=== PATIENT | female | born 1960 | race Caucasian/White ===

== ENCOUNTER 2024-08-01 09:07 | Emergency (ER) | payer OTHER, SELFPAY ==
--- NOTE | ~2024-08-01 | CT_ITS ---
EXAMINATION: CT CERVICAL SPINE WITHOUT CONTRAST CLINICAL INFORMATION: Status post fall. COMPARISON: None available. TECHNIQUE: Contiguous axial images through the cervical spine using 3 mm collimation with bone and soft tissue algorithm. Sagittal and coronal reformatted images acquired. This CT examination was performed using dose optimization techniques as appropriate, variously including the following: *Automated exposure control *Adjustment of mA and/or kV according to patient size (this includes techniques or standardized protocols for targeted exams where dose is matched to indication/reason for exam; i.e. extremities or head) *Use of iterative reconstruction technique DLP: 625.17 mGy centimeter. FINDINGS: Craniocervical junction is intact without malalignment. There is bone fusion and extending from the left transverse processes of C1 into the inferior aspect of the left petrous bone. C1 is intact. C2 is intact. C3 is intact. C4 is intact. C5 is intact. C6 is intact. C7 is intact. No prevertebral compartment hematoma. There is a reverse curvature apex at C4-5. There is no gross malalignment between the vertebral bodies or the facet joints. CT/CT cervical spine wo IV con IMPRESSION: Multilevel cervical spondylosis without acute fracture or trauma-related listhesis. Left-sided unilateral bone fusion, left C1 inferior petrous bone. Fleischner guidelines were followed. Electronically signed by: Everton Mejia MD 08/01/2024 01:04 PM EDT
--- NOTE | ~2024-08-01 | CT_ITS ---
EXAMINATION: CT CHEST WITH CONTRAST CLINICAL INFORMATION: Status post fall. Left-sided chest pain. COMPARISON: None available. TECHNIQUE: Multidetector volumetric CT imaging of the chest was obtained after the administration of 85 mL of Omnipaque 350 intravenous contrast without immediate adverse reactions. Axial MIP volume rendering provided. Sagittal and coronal reformatted images were obtained. This CT examination was performed using dose optimization techniques as appropriate, variously including the following: *Automated exposure control *Adjustment of mA and/or kV according to patient size (this includes techniques or standardized protocols for targeted exams where dose is matched to indication/reason for exam; i.e. extremities or head) *Use of iterative reconstruction technique FINDINGS: BITE BLOCK MAKER: Patient's large body habitus. Single broad-based anchor and the upper thoracic and mid lumbar spine. Right upper extremity away from the patient's body. Left upper extremities to the side of the patient's body. LUNGS: Linear attenuation abnormalities in the lung bases right middle lung lobe and lingula. Paraseptal emphysematous changes in the upper lobes. No gross consolidation. No gross bronchiectasis. No gross honeycombing. MEDIASTINUM: No hemomediastinum. No pneumomediastinum. No hemopericardium. No IV contrast extravasation the thoracic aorta. No aneurysm or dissection. No pericardial effusion. Nonspecific mildly prominent lymph nodes. Calcified plaques in the coronary arteries. PLEURA: . No pneumothorax. No hemothorax. Small volume left-sided pleural effusion. AXILLA: No lymphadenopathy. UPPER ABDOMEN: Please refer to CT OSSEOUS STRUCTURES: No acute rib fracture, left hemithorax. Multilevel spondylosis without acute fracture or trauma-related listhesis. Status post posterior fusion and anchored to the posterior elements and T4 and the lumbar spine aren't [id number]. The sternum is intact. The scapula is intact. The included clavicles are intact. CT/CT chest w IV con IMPRESSION: No acute intrathoracic organ or vascular injury. No acute fracture. Fleischner guidelines were followed. Electronically signed by: Everton Mejia MD 08/01/2024 12:57 PM EDT
--- NOTE | ~2024-08-01 | CT_ITS ---
EXAMINATION: CT HEAD WITHOUT CONTRAST CLINICAL INFORMATION: fall COMPARISON: None available. TECHNIQUE: Contiguous axial imaging was performed from the skull base to vertex without intravenous administration of contrast. This CT examination was performed using dose optimization techniques as appropriate, variously including the following: *Automated exposure control *Adjustment of mA and/or kV according to patient size (this includes techniques or standardized protocols for targeted exams where dose is matched to indication/reason for exam; i.e. extremities or head) *Use of iterative reconstruction technique DLP: 647.62 mGy-cm FINDINGS: Limited due to patient's positioning on the CT scanner. No acute cortical disruption in the bony calvarium or the skull base. No acute intracranial hemorrhage, mass effect, midline shift, hydrocephalus or herniation. Bilateral multifocal patchy and confluent deep periventricular white matter hypodensities involving centrum semiovale and wilburn radiata and cerebral hemispheres. Miner-white matter differentiation is normal. Prominence of the extra-axial CSF spaces cerebral sulci and ventricles. Mucosal thickening and secretions with the mixed increased density and volume loss, right maxillary sinus. Edentulous. CT/CT head/brain wo IV con IMPRESSION: No acute fracture or bony calvarium. No acute intracranial hemorrhage. White matter disease likely related to small vessel occlusive disease. Acute on chronic right maxillary sinus disease. Electronically signed by: Everton Mejia MD 08/01/2024 12:40 PM EDT
--- NOTE | ~2024-08-01 | CT_ITS ---
EXAMINATION: CT ABDOMEN AND PELVIS WITH CONTRAST CLINICAL INFORMATION: Status post fall. Left upper abdominal pain. COMPARISON: None available. TECHNIQUE: Multidetector volumetric images were obtained from the superior aspect of the liver through the pubic symphysis following administration 85 mL of Omnipaque 350 intravenous contrast. Sagittal and coronal reformatted images were obtained on the technologist's workstation. Oral contrast: No This CT examination was performed using dose optimization techniques as appropriate, variously including the following: *Automated exposure control *Adjustment of mA and/or kV according to patient size (this includes techniques or standardized protocols for targeted exams where dose is matched to indication/reason for exam; i.e. extremities or head) *Use of iterative reconstruction technique DLP: 881.03 mGy centimeter. FINDINGS: LUNG BASES: Linear and patchy attenuation center the lung bases, lingula and right middle lung lobe. LIVER, GALLBLADDER, AND BILIARY TREE: Liver is intact. Liver measures 18 cm decreased enhancement pattern in subtle nodular surface. Portal veins and hepatic veins are patent without IV contrast extravasation. No intrahepatic biliary ductal dilatation. Focal cholelithiasis. No pericholecystic fluid collection or gallbladder wall thickening. No extrahepatic biliary ductal dilatation. PANCREAS: Intact. No focal lesion. No peripancreatic fluid collection. No main pancreatic ductal dilatation. SPLEEN: 8 cm. Intact. No focal lesion. ADRENAL GLANDS: Intact. No nodular lesions. KIDNEYS AND URETERS: Intact. No gross enhancing mass. No hydronephrosis. No gross nephrolithiasis. BLADDER: There are few. GASTROINTESTINAL TRACT: Abundant stool. No intestinal obstruction. No intestinal wall thickening. Scattered diverticula in the left hemicolon. Appendix is normal. No intestinal obstruction. No pneumoperitoneum. No ascites. No peripheral enhancing fluid collection, peritoneal cavity. ABDOMINAL WALL: Diastases abdominal rectus muscles in the periumbilical region. Small tiny fat-containing umbilical hernia. LYMPH NODES: No lymphadenopathy. VASCULAR: Calcified plaques throughout the abdominal aorta wall and iliac arteries without aneurysm or dissection. PELVIC VISCERA: 3.4 cm cystic lesion, left adnexa. OSSEOUS STRUCTURES: The hardening artifact secondary to a metallic round on the left side of the posterior elements extending from the thoracic spine no fully included and anchor and posterior elements of L3. No acute fracture. Incomplete ankylosis of the vertebral bodies and the lower thoracic spine. Grade 1 retrolisthesis L3-4 on a degenerative basis. Multilevel marginal osteophyte formation and vacuum phenomenon from L3-4 to L5-S1. S-shaped curvature of the thoracolumbar junction. No acute fracture or dislocation in the coxofemoral joints. There is a bone defect in the right iliac bone likely related to the spine surgery. There is fatty atrophy of the lower lumbar muscles from L3 to sacrum. CT/CT abdomen pelvis w IV con IMPRESSION: No acute intra-abdominal pelvic organ injury or vascular injury or acute fracture. Consider hepatocellular disease/cirrhosis. Cholelithiasis. Diverticular disease. 3.4 cm cystic lesion left adnexa. Fleischner guidelines were followed. Electronically signed by: Everton Mejia MD 08/01/2024 12:48 PM EDT
--- NOTE | ~2024-08-01 | XR_ITS ---
EXAMINATION: XR RIBS, LEFT CLINICAL INFORMATION: fall rib pain COMPARISON: None available. TECHNIQUE: 3 views of the left ribs were obtained. FINDINGS: Linear opacities in the lower hemithoraces. Pulmonary reticular pattern. No gross consolidation. No pneumothorax. Blunting of the left costophrenic angle. No acute cortical disruption in the ribs of the left hemithorax. S-shaped curvature of the thoracolumbar spine. There is a single metallic tawny anchored in the proximal thoracic spine and proximal lumbar spine likely related to the scoliosis. Cardiomediastinal silhouette size is normal. Secretions in the thoracic aortic arch. XR/XR ribs LT min 3V w CXR1V IMPRESSION: Chronic interstitial lung disease and mild interstitial lung edema versus subsegmental atelectasis. Questionable small volume left-sided pleural effusion versus pleural thickening. No overt acute rib fracture, left hemithorax. Electronically signed by: Everton Mejia MD 08/01/2024 10:25 AM EDT
[2024-08-01 09:12] VITALS: BP 149/83; PULSE 79; RESP 18; O2SAT 98; BMI 34.4
--- NOTE | 2024-08-01 09:46 | ED_ITS ---
HPI - Fall General Chief Complaint: Fall Stated Complaint: Fall 4 days ago - body pains, SOB Time Seen by Provider: 08/01/24 09:17 Source: patient and RN notes reviewed Mode of arrival: ambulatory Limitations: no limitations History of Present Illness ED Provider: Gladys Bryson PA-C HPI Narrative: This is a 63-year-old female, with a history of atrial fibrillation on Eliquis, hyperlipidemia, hypertension, and emphysema, who presents emergency department with concerns for fall which occurred 4 days ago. Patient states that on Wednesday she was waiting for the bus, and quickly turned her head to the right and then fell onto her left side of her body with her left arm extended upwards. She is unsure if she lost consciousness, she was feeling well prior to the fall. She states that she believes she was trying to get her walker and lost her balance and fell. She landed onto her left side. She denies LOC however states that if she did not lose consciousness this was only for a brief second as others were trying to help her up. She felt well prior to the fall. She states that since fall she has had left-sided rib pain which worsens with coughing and with deep inspiration. She denies any dizziness, severe headache, blurred vision, vision changes, chest pain, shortness of breath, palpitations, abdominal pain, nausea, vomiting or diarrhea. She has been taking Tylenol for her symptoms which has provided her with some relief. No other complaints or concerns at this time. MD complaint: fall Onset (ago): day(s) Fall from: standing Fall witnessed: yes, by bystander Place fall occurred: street Loss of consciousness: unsure Length of LOC: second(s) Prolonged down time: no Symptoms prior to fall: none Context: tripped/slipped Severity: moderate Quality: sharp and aching Related Data Previous Rx's ?Medication ?Instructions ?Recorded acetaminophen 500 mg tablet 500 mg PO Q6H PRN pain #30 tabs 08/01/24 (Tylenol Extra Strength) lidocaine 5 % topical patch 1 patch topical DAILY #30 ea 08/01/24 Allergies Allergy/AdvReac Type Severity Reaction Status Date / Time No Known Allergies Allergy Verified 08/01/24 09:14 Review of Systems 2 Review of Systems: Constitutional: No Weight loss, No Fever, No Chills, No Night Sweats, No Fatigue, No Malaise ENT/Mouth: No Hearing loss, No Ear Pain, No Nasal Congestion, No Sinus Pain, No Hoarseness, No sore throat, No Rhinorrhea, No Swallowing Difficulty Eyes: No Eye Pain, No Swelling, No Redness, No Foreign Body, No Discharge, No Vision Changes Cardiovascular: No Chest Pain, No SOB, No Dyspnea on Exertion, No Orthopnea, No Edema, No Palpitations Respiratory: No Cough, No Sputum, No Wheezing, No Smoke Exposure, No Dyspnea Gastrointestinal: No Nausea, No Vomiting, No Diarrhea, No Constipation, No Abdominal pain, No Hematochezia, No Melena Genitourinary: No irregular bleeding, No Dysuria, No Urinary Frequency, No Hematuria, No Urinary Incontinence/retention, No Urgency, No Flank Pain, No Urinary Flow Changes, No Hesitancy Musculoskeletal: No joint pain, No Myalgias, No Joint Swelling Skin: No Skin Lesions, No rash Neuro: No Weakness, No Numbness, No Paresthesias, No Loss of Consciousness, No Dizziness, No Headache Psych: No Anxiety/Panic, No Depression, No SI/HI/AH/VH, No Social Issues, Heme/Lymph: No Bruising, No Bleeding,No Lymphadenopathy Endocrine: No Polyuria, No Polydipsia, No Temperature Intolerance Yes all other systems are reviewed and are negative Constitutional: Constitutional: Reports as per [facility] Social History Social History Advance Directives: No Advance Directives Information Provided: Yes Do you have a plan to hurt others: No Plan Patient : No Physical Exam 2 Vital Signs: Vital Signs: Last Vital Signs Temp 98.1 F 08/01/24 15:51 Pulse 78 08/01/24 15:51 Resp 18 08/01/24 15:51 BP 120/66 08/01/24 15:51 Pulse Ox 95 08/01/24 15:51 O2 Del Method Room Air 08/01/24 15:51 BMI result Body Mass Index 34.4 Const: General: cooperative, comfortable and no acute distress O rientation/consciousness: patient oriented x3 Limitations: no limitations HEENT: Head: Yes normal to inspection, Yes normocephalic, Yes atraumatic, No Victor's sign, No occipital foramen tenderness and No raccoon eyes Ears: h earing grossly normal bilaterally and TM's normal bilaterally (No hemotympanum) General nose exam: Normal external nose present Face and sinus: Yes normal facial exam Mouth: Normal oral and palatal mucosa present, oropharynx normal and moist mucous membranes Throat: Yes posterior oropharynx normal Eyes: General: appearance normal, both eyes and all related structures E yelids: Yes eyelids normal Conjunctivae: conjunctivae normal Sclerae: s clerae normal Pupils: Equal, round and reactive pupils present EOM: EOMs intact bilaterally Neck: Neck: Yes normal visual inspection, Yes full ROM and Yes no lymphadenopathy Lymphatic: no lymphadenopathy noted Chest: Other: Left lateral breast with 2 1 mm round area of old ecchymosis with tenderness palpation. She does have tenderness palpation along the left lateral ribs, with no bony step-off or deformity. No flail chest. Chest palpation & inspection: normal inspection of the chest Resp: Effort & Inspection: normal respiratory effort and able to speak in complete sentences Auscultation: clear to auscultation bilaterally, no crackles, no rales, no rhonchi and no wheezes Cardio: Rate: regular rate Rhythm: regular rhythm Heart sounds: S1 normal heart sound present and S2 normal heart sound present GI: Inspection: Yes normal to inspection Back/Spine/Pelvis: Other: Mild tenderness palpation along the lumbar paraspinous muscles, there is a large well-healed surgical incision site noted to the lumbar spine. No surrounding erythema or warmth. Skin: General skin exam: no rashes or lesions noted Trauma: no lacerations or abrasions Wounds: no wounds Neuro: General: patient oriented x3 and moves all extremities Cranial nerves: Yes Equal, round and reactive pupils present Extrem: General: Yes normal to inspection Right upper extremity: normal to inspection Left upper extremity: normal to inspection Right lower extremity: normal to inspection Left lower extremity: normal to inspection Course Reevaluation(s) Reevaluation #1: Labs returned, she has no leukocytosis, stable H&H, chemistry revealing slight hyponatremia at 132, AST and ALT slightly elevated at 71 and 73, T bili within normal limits. Troponin x2 less than 2.7. Urine does not appear to be infected. EKG revealing a normal sinus rhythm at a ventricular rate of 78 beats per minute. CO interval 208, QT QTC 442/503. No STEMI. Right bundle-branch block noted. No previous for comparison. CT head, neck, abdomen and pelvis, and chest revealed no acute findings. There are multiple incidental findings including hepatocellular disease, cystic lesion on the left adnexa, cholelithiasis, diverticular disease, as well as degenerative changes of the lumbar spine. CT chest revealing no intrathoracic organs or vascular injury. CT of the C-spine revealing left-sided unilateral phone fusion left C1 bone.. Discussed all of these findings with patient. Advised that she needs to follow- up with her primary care physician for monitoring. She was feeling well, eager for discharge. Will discharged on Tylenol as she was currently on Eliquis and therefore can not take NSAIDs. Given strict return precautions. She understands agrees with plan. Patient stable for discharge. Medications Administered Discontinued Medications Generic Name Dose Route Start Last Admin Trade Name Freq PRN Reason Stop Dose Admin Acetaminophen 1,000 mg in 100 mls @ 400 mls/hr 08/01/24 10:03 08/01/24 10:41 Ofirmev IV 08/01/24 10:17 Infused ONCE ONE Infusion Iohexol 100 ml 08/01/24 12:07 08/01/24 12:08 Iohexol 350 Mg/Ml 100 Ml Infus..Btl IV 08/01/24 12:08 85 ml ONCE ONE Administration Medical Decision Making Medical Decision Making [facility] Narrative: This is a 63-year-old female, with a history of atrial fibrillation on Eliquis, emphysema, hypertension, hyperlipidemia, who presents emergency department with complaints of left-sided rib pain status post fall which occurred several days ago. On arrival, blood pressure mildly elevated at 140 9/83, all other vital signs within normal limits. She is neurologically intact with no neurologic focal deficits on examination. She has mild tenderness palpation along the left lateral ribs, as well as left upper quadrant. Given that she was on anticoagulation, will obtain a CT head, neck, chest and abdomen. Differential diagnoses include rib fracture, pneumothorax, ICH, SDH, arrhythmia, electrolyte abnormality. Plan: Labs, CT, EKG Differential Diagnosis Differential Diagnoses: The differential diagnosis associated with the presentation includes See above Admission/Observation Consideration of admission/observation: Escalation of care including admission/observation considered Lab Data [facility] Lab Attestation statement: I reviewed the patient's lab results. See course comment 08/01/24 10:21 08/01/24 11:23 Labs: Lab Results 08/01/24 08/01/24 08/01/24 Range/Units 10:21 11:23 14:19 WBC 9.4 (4.8-10.8) X10*3/uL RBC 4.65 (4.20-5.50) X10*6/uL Hgb 14.0 (12.0-16.0) g/dl Hct 41.9 (37.0-47.0) % MCV 90.1 (80.0-98.0) fL MCH 30.1 (27.0-33.0) pg MCHC 33.4 (31.0-35.0) g/dl RDW 13.7 (11.0-16.0) % Plt Count 268 (160-400) X10*3/uL MPV 9.0 L (9.4-12.3) fL Immature Gran % (Auto) 0.3 (0.0-0.4) % Neut % (Auto) 71.7 (45-73) % Lymph % (Auto) 14.3 L (20-40) % [place] % (Auto) 8.6 (2-11) % Eos % (Auto) 4.4 H (0-4) % Baso % (Auto) 0.7 (0-2) % Lymph # (Auto) 1.3 (1.2-4.9) X10*3/uL [place] # (Auto) 0.8 (0.1-1.2) X10*3/uL Eos # (Auto) 0.4 (0.0-0.4) X10*3/uL Baso # (Auto) 0.1 (0.0-0.2) X10*3/uL Abs Immat Gran (auto) 0.03 (0.00-0.03) X10*3/uL Absolute Neuts (auto) 6.7 (2.0-8.3) x10*3/uL Absolute Nucleated RBC 0.000 (0.0-0.012) X10*3/uL Nucleated RBC % (auto) 0.0 (0.0-0.2) /100WBC PT 16.3 H (10.9-12.4) SEC INR 1.4 H (0.9-1.1) Sodium 132 L (135-145) mmol/L Potassium 4.7 (3.3-5.1) mmol/L Chloride 99 (96-108) mmol/L Carbon Dioxide 23 (22-29) mmol/L Anion Gap 15 (12-20) BUN 10 (9-16) mg/dL Creatinine 0.70 (0.5-1.4) mg/dL Estim Creat Clear Calc 101.0 Estimated GFR > 60 Random Glucose 108 (60-115) mg/dL Calcium 9.2 (8.4-10.2) mg/dL Magnesium 2.1 (1.6-2.6) mg/dL Total Bilirubin 0.6 (0.0-1.0) mg/dL Direct Bilirubin 0.2 (0.0-0.5) mg/dL AST 71 H (5-31) U/L ALT 73 H (0-31) U/L Alkaline Phosphatase 115 (39-117) U/L Troponin I High Sens < 2.7 < 2.7 (<3.5-17.0) ng/L Total Protein 7.3 (6.5-8.0) g/dL Albumin 4.4 (3.5-5.0) g/dL Lipase 20 (8-78) U/L Urine Color Yellow Urine Appearance Clear Urine pH 6.0 (5.0-9.0) Ur Specific [place] >= 1.030 H (1.005-1.025) Urine Protein Negative (Neg-Trace) mg/dL Urine Glucose (UA) Negative (Negative) mg/dL Urine Ketones Negative (Negative) mg/dL Urine Blood Negative (Negative) Urine Nitrite Negative (Negative) Ur Leukocyte Esterase Negative (Negative) Independent Interpretation I performed an independent interpretation of an: EKG Interpretation: EKG normal sinus rhythm with a right bundle-branch block, ventricular rate of 78 beats per minute, QT QTC 442/503, no STEMI. No previous for comparison. Radiology Impression Discussion of test interpretation with radiology: I have reviewed the radiologist's reading. Radiologist Impression: CT/CT cervical spine wo IV con IMPRESSION: Multilevel cervical spondylosis without acute fracture or trauma-related listhesis. Left-sided unilateral bone fusion, left C1 inferior petrous bone. Fleischner guidelines were followed. Electronically signed by: Everton Mejia MD 08/01/2024 01:04 PM EDT [address] [place] [address] XRay Report Signed Patient: Vidya Colmenares MR#: [id number] : 1960 Acct:[id number] Age/Sex: 63 / F ADM Date: 08/01/24 Loc: .ED Attending Dr: Ordering Physician: Gilbert Dietrich MD Date of Service: 08/01/24 Procedure(s): XR ribs LT min 3V w CXR1V Accession Number(s): [id number] cc: HOPE FROST MD; Gilbert Dietrich MD~ EXAMINATION: XR RIBS, LEFT CLINICAL INFORMATION: fall rib pain COMPARISON: None available. TECHNIQUE: 3 views of the left ribs were obtained. FINDINGS: Linear opacities in the lower hemithoraces. Pulmonary reticular pattern. No gross consolidation. No pneumothorax. Blunting of the left costophrenic angle. No acute cortical disruption in the ribs of the left hemithorax. S-shaped curvature of the thoracolumbar spine. There is a single metallic tawny anchored in the proximal thoracic spine and proximal lumbar spine likely related to the scoliosis. Cardiomediastinal silhouette size is normal. Secretions in the thoracic aortic arch. XR/XR ribs LT min 3V w CXR1V IMPRESSION: Chronic interstitial lung disease and mild interstitial lung edema versus subsegmental atelectasis. Questionable small volume left-sided pleural effusion versus pleural thickening. No overt acute rib fracture, left hemithorax. Electronically signed by: Everton Mejia MD 08/01/2024 10:25 AM EDT [address] [address] [address] Scan Report Signed Patient: Vidya Colmenares MR#: [id number] : 1960 Acct:[id number] Age/Sex: 63 / F ADM Date: 08/01/24 Loc: .ED Attending Dr: Ordering Physician: Gladys Reyes Date of Service: 08/01/24 Procedure(s): CT head/brain wo IV con Accession Number(s): [id number] cc: HOPE FROST MD; Gladys Reyes~ Report Number: [id number]: Total DLP = 1282.00 mGy-cm EXAMINATION: CT HEAD WITHOUT CONTRAST CLINICAL INFORMATION: fall COMPARISON: None available. TECHNIQUE: Contiguous axial imaging was performed from the skull base to vertex without intravenous administration of contrast. This CT examination was performed using dose optimization techniques as appropriate, variously including the following: *Automated exposure control *Adjustment of mA and/or kV according to patient size (this includes techniques or standardized protocols for targeted exams where dose is matched to indication/reason for exam; i.e. extremities or head) *Use of iterative reconstruction technique DLP: 647.62 mGy-cm FINDINGS: Limited due to patient's positioning on the CT scanner. No acute cortical disruption in the bony calvarium or the skull base. No acute intracranial hemorrhage, mass effect, midline shift, hydrocephalus or herniation. Bilateral multifocal patchy and confluent deep periventricular white matter hypodensities involving centrum semiovale and wilburn radiata and cerebral hemispheres. Miner-white matter differentiation is normal. Prominence of the extra-axial CSF spaces cerebral sulci and ventricles. Mucosal thickening and secretions with the mixed increased density and volume loss, right maxillary sinus. Edentulous. CT/CT head/brain wo IV con IMPRESSION: No acute fracture or bony calvarium. No acute intracranial hemorrhage. White matter disease likely related to small vessel occlusive disease. Acute on chronic right maxillary sinus disease. Electronically signed by: Everton Mejia MD 08/01/2024 12:40 PM EDT RP Dictated By: Everton Arriola MD FINDINGS: LUNG BASES: Linear and patchy attenuation center the lung bases, lingula and right middle lung lobe. LIVER, GALLBLADDER, AND BILIARY TREE: Liver is intact. Liver measures 18 cm decreased enhancement pattern in subtle nodular surface. Portal veins and hepatic veins are patent without IV contrast extravasation. No intrahepatic biliary ductal dilatation. Focal cholelithiasis. No pericholecystic fluid collection or gallbladder wall thickening. No extrahepatic biliary ductal dilatation. PANCREAS: Intact. No focal lesion. No peripancreatic fluid collection. No main pancreatic ductal dilatation. SPLEEN: 8 cm. Intact. No focal lesion. ADRENAL GLANDS: Intact. No nodular lesions. KIDNEYS AND URETERS: Intact. No gross enhancing mass. No hydronephrosis. No gross nephrolithiasis. BLADDER: There are few. GASTROINTESTINAL TRACT: Abundant stool. No intestinal obstruction. No intestinal wall thickening. Scattered diverticula in the left hemicolon. Appendix is normal. No intestinal obstruction. No pneumoperitoneum. No ascites. No peripheral enhancing fluid collection, peritoneal cavity. ABDOMINAL WALL: Diastases abdominal rectus muscles in the periumbilical region. Small tiny fat-containing umbilical hernia. LYMPH NODES: No lymphadenopathy. VASCULAR: Calcified plaques throughout the abdominal aorta wall and iliac arteries without aneurysm or dissection. PELVIC VISCERA: 3.4 cm cystic lesion, left adnexa. OSSEOUS STRUCTURES: The hardening artifact secondary to a metallic round on the left side of the posterior elements extending from the thoracic spine no fully included and anchor and posterior elements of L3. No acute fracture. Incomplete ankylosis of the vertebral bodies and the lower thoracic spine. Grade 1 retrolisthesis L3-4 on a degenerative basis. Multilevel marginal osteophyte formation and vacuum phenomenon from L3-4 to L5-S1. S-shaped curvature of the thoracolumbar junction. No acute fracture or dislocation in the coxofemoral joints. There is a bone defect in the right iliac bone likely related to the spine surgery. There is fatty atrophy of the lower lumbar muscles from L3 to sacrum. CT/CT abdomen pelvis w IV con IMPRESSION: No acute intra-abdominal pelvic organ injury or vascular injury or acute fracture. Consider hepatocellular disease/cirrhosis. Cholelithiasis. Diverticular disease. 3.4 cm cystic lesion left adnexa. Fleischner guidelines were followed. Electronically signed by: Everton Mejia MD 08/01/2024 12:48 PM EDT Dictated By: Everton Arriola MD Discharge Plan Discharge Clinical Impression: Fall, Contusion of rib on left side Patient Disposition: Home, Self-Care Instructions: Contusion in Adults (ED), Fall Prevention (ED), Rib Contusion (ED) Additional Instructions: You were seen in the emergency department after a fall. Your workup today was reassuring. Please rest, ice, and take Tylenol as needed for pain. You may also use Lidoderm patches as needed. Your urine does not appear to be infected. Please follow-up with your primary care physician regarding this visit. You do have slight elevation in your liver enzymes, and a low sodium, there is no emergent intervention needed however you need follow-up with your primary care physician Your head CT, neck CT do not show any new injury from the fall. You have multiple incidental findings from your CT scans that were performed today. You have a cystic lesion on your left adnexa, diverticular disease, cholelithiasis, and cirrhosis, also have a left-sided unilateral bone fusion at your C1 level in your neck. Call your primary care physician regarding this finding. Your EKG shows a right bundle-branch block, we have no previous EKGs for comparison, your troponin blood enzymes were drawn several times, and were normal. Please follow-up with your primary care. You have no evidence of the rib fracture on your images. However you are likely going to be right sore for the next several days. If any new or worsening symptoms occur including but not limited to severe shortness of breath, chest pain, please seek emergent care. Prescriptions: New acetaminophen [Tylenol Extra Strength] 500 mg tablet 500 mg PO Q6H PRN (Reason: pain) Qty: 30 0RF lidocaine 5 % adhesive patch,medicated 1 patch topical DAILY Qty: 30 0RF Rx Instructions: leave on most painful area for up to 12 hrs Interventions: ED Discharge Assessment Last Done: 08/01/24 15:51 Discharge Date/Time: 08/01/24 15:52 Print Language: Gambian
[2024-08-01 09:56] VITALS: BP 139/79; PULSE 83; RESP 18; O2SAT 99
--- NOTE | 2024-08-01 10:01 | ECG_ITS ---
Test Reason : fall Blood Pressure : */* mmHG Vent. Rate : 78 BPM Atrial Rate : 78 BPM P-R Int : 208 ms QRS Dur : 110 ms QT Int : 442 ms P-R-T Axes : 48 9 57 degrees QTcB Int : 503 ms Normal sinus rhythm Right bundle branch block Abnormal ECG No previous ECGs available Referred By: Gladys Bryson Electronically Signed By: Андрей Merrill
[2024-08-01] MEDS: Acetaminophen 1,000 MG/100 ML PIGGYBACK 400 MG IV (10:26)
[2024-08-01 10:28] LABS: MANUAL DIFF FLAG NO
[2024-08-01 10:31] LABS: Basophils Absolute Auto 0.1 X10*3/uL (0.0-0.2); Basophils Percent Auto 0.7 % (0-2); Eosinophils Absolute Auto 0.4 X10*3/uL (0.0-0.4); Eosinophils Percent Auto 4.4 % (0-4); Hematocrit 41.9 % (37.0-47.0); Imm Gran Abs Auto 0.03 X10*3/uL (0.00-0.03); Imm Gran Pct Auto 0.3 % (0.0-0.4); Lymphocytes Absolute Auto 1.3 X10*3/uL (1.2-4.9); Lymphocytes Percent Auto 14.3 % (20-40); Mean Corpuscular HGB Conc 33.4 g/dl (31.0-35.0); Mean Corpuscular Hemoglobin 30.1 pg (27.0-33.0); Mean Corpuscular Volume 90.1 fL (80.0-98.0); Monocytes Absolute Auto 0.8 X10*3/uL (0.1-1.2); Monocytes Percent Auto 8.6 % (2-11); Neutrophils Absolute Auto 6.7 x10*3/uL (2.0-8.3); Neutrophils Percent Auto 71.7 % (45-73); Platelet Count 268 X10*3/uL (160-400); Red Blood Count 4.65 X10*6/uL (4.20-5.50); Red Cell Distribution Width 13.7 % (11.0-16.0); White Blood Count 9.4 X10*3/uL (4.8-10.8)
[2024-08-01 10:40] LABS: INTERNATIONAL NORM RATIO 1.4 (0.9-1.1); Prothrombin Time 16.3 SEC (10.9-12.4)
[2024-08-01 10:54] LABS: Troponin-I High Sensitivity < 2.7 ng/L (<3.5-17.0)
--- OUTSIDE RECORDS SUMMARY | 2024-08-01 11:23 | XMS_ITS | Data Portability ---
Author Organization [place] - [facility] Address [address] [place] [id number] Assessment Encounter Date Assessment Date Assessment LastModified by Organization Details LastModified Time 06/07/2020 06/07/2020 Overview/Histo ry: 59yoF new to pmhx hypothyroidism , HTN, HDL, asthma, c/o cough, sob x 2 days. No fever or chest pain. Patient is using her ventolin once a week. Loss of sense of smell 2-3 days ago. No abdominal pain, nausea or vomiting. Patient reports fatigue. Patient last saw [facility]RI[facility] [employer] PROFESSOR 2 days ago, and she was symptomatic and yesterday tested positive for covid. Of note the patient was admitted to [facility] 05/07 for cp. Patient had an echo and stress test. Patient denies cp at this time Exam: Patient tachycardic, non toxic appearing heart tachycardic without murmur lungs CTA abdomen soft and non tender DDx considered, but not limited to: covid pna-doubt as lungs CTA PE- influenza asthma exacerbation-d oubt as no wheezing on exam acs-doubt as symptoms assoc with a cough and patient recently had a stress test and echo within the past month Work up/Results: rapid covid test performed on seen PCR covid test pending Plan/Discussio n: Patient is tachyvcardic, and reports she has been tachycardic for weeks and has been keeping a record and following with her PCP. Patient reports being tested for a DVT and a blood clot in the lungs within the last month. patient is seen today for a covid test after exposure. Lungs are CTA at this time, low suspicion for pna. Precautions given to again seek immediate care if she develops a fever, worsened cough, chest pain or sob. She will continue to isolare. DHMT and I wore full PPE including N95 masks Time On Scene with Patient: 00:36:07 [email or web address] Not available 06/07/2020 09:37:43 Plan of Treatment Reminders Order Date Submit Date Provider Last Modified By Organization Details Last Modified Time Details Appointments None recorded. Lab rapid SARS CoV + SARS CoV 2 Ag, QL IA, respiratory specimen 2020 021 [email or web address] [facility], [address], [place], [address], 09:30:04 SARS CoV 2 RNA (COVID-19), QL, director of physical security-PCR, respiratory specimen 2020 021 [facility] (Centralized Electronic Ordering - All Locations), Patient Can Go To The Location Of Their Choice, [id number] 11:49:06 Referral None recorded. Procedures None recorded. Surgeries None recorded. Imaging None recorded. Medication Orders None recorded. Patient TargetsNo targets recorded. Patient InstructionsNo instructions recorded. Reason for Referral None Reported. Results Created Date Observation Date Name Description Value Unit Range Abnormal Flag Note LastModifiedBy Organization Detail LastModifiedTime 06/08/1906/10/2020 covid -19 (nove l coron aviru s) PCR covid-19 PCR result (neg) NEGAT SADIA 2018- novel Coron aviru s (2018nCoV ) not detec erin by RT-PC Javier. Note: If clini carrington suspi cion for COVID -19 is high, maxime nue to maint ain preca ution s and consi mirna repea t testi ng. Resul t repor erin to the [facility]. All test resul ts must be corre lated with clini carrington findi ngs. This test has been autho rized by the FDA under an Emerg ency Use Autho rizat ion (EUA) for use by autho rized labor atori es. Testi ng perfo rmed on the [employer] ic Panth er Aptim a assay utili zing trans cript ion-m ediat ed ampli ficat ion (TMA) . Not Available [facility] (Centralized Electronic Ordering - All Locations) Patient Can Go To The Location Of Their Choice, [id number] 06/10/2020 17:02:01 06/08/1906/10/2020 covid -19 (nove l coron aviru s) PCR covid-19 PCR specimen source NASAL Not Available [facility] (Centralized Electronic Ordering - All Locations) Patient Can Go To The Location Of Their Choice, [id number] 06/10/2020 17:02:01 06/08/19 21 06/07/2020 rapid SARS CoV + SARS CoV 2 Ag, QL IA, respi rator y speci men Covid-19 negati ve Not Available [facility] [address] [place], [address], 06/07/2020 09:16:58 06/08/1906/07/2020 rapid SARS CoV + SARS CoV 2 Ag, QL IA, respi rator y speci men Control Visual ized/V alid Not Available [facility] [address] [place], [address], 06/07/2020 09:16:58 Result Notes None recorded. Procedures Surgical History Date Name Laterality Status Provider Name and Address Organization Details Recorded Time dorsolumbar spinal fusion with King tawny completed [facility] BASIL[facility] [address] [place], [address], [place] [facility] 06/07/2020 09:12:16 Imaging Results None recorded. Procedure Notes None recorded. Medical Equipment None Reported. Allergies No known drug allergies Medications Name Sig Start Date Stop Date Status Note LastModified by Organization Details LastModified Time atorvastati n 40 mg tablet TAKE 1 TABLET BY MOUTH DAILY 06/07 completed Not Available Not Available Not Available loperamide 2 mg capsule TK 1 C PO Q 4 H PRF LOOSE STOOL active Not Available Not Available No t Available cetirizine 10 mg tablet TAKE 1 TABLET BY MOUTH DAILY active Not Available Not Available No t Available ondansetron HCl 8 mg tablet TK 1 T PO Q 8 H FOR 5 DAYS PRF NAUSEA OR VOM 06/07 completed Not Available Not Available Not Available amlodipine 5 mg tablet TAKE 1 TABLET BY MOUTH DAILY active Not Available Not Available No t Available peg-electro lyte solution 420 gram oral solution MIX AND DRINK UTD 240 MLS PO Q 15 MINUTES active Not Available Not Available No t Available amitriptyli ne 50 mg tablet TAKE 1 TABLET BY MOUTH DAILY AT BEDTIME active Not Available Not Available No t Available pantoprazol e 20 mg tablet,leticia yed release TAKE 1 TABLET BY MOUTH DAILY active Not Available Not Available No t Available levothyroxi ne 100 mcg tablet TK 1 T PO D 06/07 completed Not Available Not Available Not Available levothyroxi ne 88 mcg tablet TAKE 1 TABLET BY MOUTH DAILY active Not Available Not Available No t Available nicotine 21 mg/24 hr daily transdermal patch APPLY 1 PATCH TOPICALLY QD active Not Available Not Available No t Available omeprazole 20 mg capsule,del ayed release 06/07 completed Not Available Not Available Not Available hydrochloro thiazide 25 mg tablet TAKE 1 TABLET BY MOUTH DAILY 06/07 completed Not Available Not Available Not Available fluticasone propionate 50 mcg/actuati on nasal spray,suspe nsion SHAKE LIQUID AND USE 1 SPRAY IN EACH NOSTRIL TWICE DAILY active Not Available Not Available No t Available loratadine 10 mg tablet TK 1 T PO QD active Not Available Not Available No t Available Ventolin HFA 90 mcg/actuati on aerosol inhaler INHALE 2 PUFFS BY MOUTH FOUR TIMES DAILY NEEDED FOR WHEEZING active Not Available Not Available No t Available nicotine (polacrilex ) 2 mg buccal lozenge DISSOLVE 1 LOZENGE PO EVERY 2 HOURS FOR 6 WEEKS active Not Available Not Available No t Available duloxetine 30 mg capsule,del ayed release TAKE 1 CAPSULE BY MOUTH TWICE DAILY active Not Available Not Available No t Available omeprazole 20 mg tablet,leticia yed release TAKE 1 TABLET BY MOUTH DAILY 06/07 completed Not Available Not Available Not Available Vitals Date Recorded Oxygen saturation Oxygen saturation in Arterial blood by Pulse oximetry Body temperature Heart rate Respiratory rate Systolic blood pressure Diastolic blood pressure Provider Name and Address Organization Details Last Updated DateTime 98 % 98 % 98 [degF] 108 /min 22 /min 110 mm[Hg] 60 mm[Hg] Not Available [facility] 09:15:48 Social History Question Answer Notes LastModified by Organizat ion Details LastModified Time Tobacco Smoking Status Former Smoker quit May 11, 2020 CONNOR BASILIO [address] [place] [address], [phone], [place] - [facility] 06/07/2020 09:11:02 Do You Have An Advance Directive? No [email or web address] Information not available 06/07/2020 What Is Your Code Status? Full Code Information not available 06/07/2020 Within The Past 12 Months, Has It Happened That The Food You Bought Just Didn't Last And You Didn't Have Money To Get More. No [email or web address] Information not available 06/07/2020 Within The Past 12 Months, Have You Worried That Your Food Would Run Out Before You Got Money To Buy More. No [email or web address] Information not available 06/07/2020 Fall Risk: Do You Feel Unsteady When Standing Or Walking? Yes [email or web address] Information not available 06/07/2020 We Know That How And When People Interact With Friends And Family Can Be Very Different From Person To Person. How Often Do You Have The Opportunity To See Or Talk To People That You Care About And Feel Close To? (Ex: Talking To Friends On The Phone Or Visiting Friends Or Family Or Going To Rastafarian Or Club Meetings) 5 Or More Times Per Week [email or web address] Information not available 06/07/2020 Excessive Alcohol Or Drug Use No [email or web address] Information not available 06/07/2020 We Know From Many Of Our Patients That Covering All Of Their Costs Can Be Difficult At Times. This Can Cause Stress And Impact Health. In The Past Year, Have You Been Unable To Get Any Of The Following When It Was Really Needed? No [email or web address] Information not available 06/07/2020 What Is Your Housing Situation Today? I Have Housing [email or web address] Information not available 06/07/2020 Would You Like Help Connecting To Resources? None [email or web address] Information not available 06/07/2020 Sex: Unknown Functional Status None recorded. Mental Status None recorded. Family History Relationship Description Onset Age of this Age Resolved Age Notes LastModified by Organization Details LastModified Time Father Coronary arterioscler osis [email or web address] Not available 2020 09:10:47 Medical History Condition Response Coronary Artery Disease Y COPD N Depression N Cancer N Stroke N High Cholesterol Y Kidney Disease N Diabetes N Asthma Y Pulmonary Embolism N Hypertension Y Gynecological HistoryNo gynecological history recorded. Obstetrics History GPAL:G 0 P 0 0 0 0 Past Encounters Encounter ID Performer Location Encounter Start Date Encounter Closed Date Diagnosis/Indication Diagnosis SNOMED-CT Code Diagnosis ICD10 Code Diagnosis Note [id number] CONNOR BASILIO [address] [place] [address] 06/07/2020 08:18:29 06/07/2020 12:40:02 Suspected COVID-19 250408186 Z20.828 Exposure t o communicable disease 960218578 Z20.822 Health Concerns Section Related Observation LastModified by Organization Detai ls LastModified Time None Recorded Concern Status LastModified by Organization Details LastModified Time None Recorded Advance Directives Directive N: Payers Encounter Date Sequence Insurance Name Policy Number Policy Ordonez Covered Member ID Ordonez Member ID Guarantor Name 06/07/2020 1 [facility] - DOS PRIOR TO 2022 - DUAL ELIGIBLE (MEDICARE REPLACEMENT/AD VANTAGE - HMO) Vidya Noonangos [id number] Vidya Noonangos Notes Date Note Type Note Provider Name and Address Organization Details Recorded Time 06/07/2020 text/html 59yoF new to pmhx hypothyroidism, HTN, HDL, asthma, c/o cough, sob x 2 days. No fever or chest pain. Patient is using her ventolin once a week. Loss of sense of smell 2-3 days ago. No abdominal pain, nausea or vomiting. Patient reports fatigue. Patient last saw CHRI[facility] [employer] PROFESSOR 2 days ago, and she was symptomatic and yesterday tested positive for covid. [facility]ILIO [address], [place], [address], [place] [facility] 06/07/2020 09:37:51 OBGyn Episode No OBEpisode recorded.
[2024-08-01 11:44] LABS: Alanine Aminotransferase 73 U/L (0-31); Albumin Level 4.4 g/dL (3.5-5.0); Alkaline Phosphatase 115 U/L (39-117); Anion Gap 15 (12-20); Aspartate Amino Transferase 71 U/L (5-31); Bilirubin Direct 0.2 mg/dL (0.0-0.5); Bilirubin Total 0.6 mg/dL (0.0-1.0); Blood Urea Nitrogen 10 mg/dL (9-16); Calcium 9.2 mg/dL (8.4-10.2); Carbon Dioxide 23 mmol/L (22-29); Chloride 99 mmol/L (96-108); Estimated Glomerular Filt Rate > 60; Glucose Random 108 mg/dL (60-115); Lipase 20 U/L (8-78); Magnesium 2.1 mg/dL (1.6-2.6); Potassium 4.7 mmol/L (3.3-5.1); Sodium 132 mmol/L (135-145); Total Protein 7.3 g/dL (6.5-8.0)
[2024-08-01] MEDS: iohexoL 350 MG/ML 100 ML INFUS..BTL IV (12:08)
[2024-08-01 12:23] VITALS: BP 136/75; PULSE 74; RESP 16; O2SAT 95
[2024-08-01 14:14] VITALS: BP 140/73; PULSE 77; RESP 16; O2SAT 95
[2024-08-01 14:26] LABS: Appearance Urine Clear; Color Urine Yellow; Glucose Urine UA Negative (Negative); Leukocyte Esterase Urine Negative (Negative); Nitrite Urine Negative (Negative); Specific Gravity - Urine >= 1.030 (1.005-1.025); Urine Blood Negative (Negative); Urine Ketones Negative (Negative); Urine Protein Negative (Neg-Trace)
[2024-08-01 14:49] LABS: Troponin-I High Sensitivity < 2.7 ng/L (<3.5-17.0)
[2024-08-01 15:39] VITALS: BP 120/66; PULSE 78; RESP 18; TEMP 36.7; O2SAT 95
[2024-08-01 15:51] VITALS: BP 120/66; PULSE 78; RESP 18; TEMP 36.7; O2SAT 95
== END 2024-08-01 15:52 | disposition home or self-care (01) ==
PROVIDERS: Physician Assistant Medical; Emergency Provider Emergency Medicine; PCP Internal Medicine
DX: S20.212A Contusion of left front wall of thorax, initial encounter (principal); W18.30XA Fall on same level, unspecified, initial encounter; Y93.9 Activity, unspecified; Y92.9 Unspecified place or not applicable; Y99.9 Unspecified external cause status; R07.81 Pleurodynia; R10.12 Left upper quadrant pain; E87.1 Hypo-osmolality and hyponatremia; I48.91 Unspecified atrial fibrillation; Z79.01 Long term (current) use of anticoagulants
CPT/HCPCS: 36415; 70450; 71101; 71260; 72125; 74177; 80048; 80076; 81003; 83690; 83735; 84484; 85025; 85610; 93005; 96374; 99284; 99285; J0131; Q9967

== ENCOUNTER → 2024-08-01 09:40 | Outpatient (BNV) | payer OTHER, SELFPAY | PROVIDERS: Emergency Provider Emergency Medicine; PCP Internal Medicine; Visit Provider Radiology Diagnostic Radiology | DX: K80.20 Calculus of gallbladder without cholecystitis without obstruction (principal); K57.90 Diverticulosis of intestine, part unspecified, without perforation or abscess without bleeding; N83.202 Unspecified ovarian cyst, left side; R07.9 Chest pain, unspecified; M47.812 Spondylosis without myelopathy or radiculopathy, cervical region; R90.82 White matter disease, unspecified; J01.01 Acute recurrent maxillary sinusitis; J84.9 Interstitial pulmonary disease, unspecified | CPT/HCPCS: 70450; 71101; 71260; 72125; 74177 ==

== ENCOUNTER → 2024-08-01 10:01 | Outpatient (BNV) | payer OTHER, SELFPAY | PROVIDERS: Emergency Provider Emergency Medicine; PCP Internal Medicine; Visit Provider Internal Medicine Cardiovascular Disease | DX: I45.10 Unspecified right bundle-branch block (principal) | CPT/HCPCS: 93010 ==